=== PATIENT | female | born 1950 | race Caucasian/White ===

== ENCOUNTER 2020-05-21 15:40 | Outpatient (CLI) | payer MEDICARE ==
--- NOTE | 2020-05-21 16:44 | MRI ---
EXAM: LEFT KNEE MRI WITHOUT IV CONTRAST: 05/21/20 HISTORY: Knee pain. Multiplanar, multisequence MRI examination of the knee demonstrates tricompartment cartilage loss. No significant suprapatellar bursal fluid. Small to moderate sized gastrocnemius semimembranosus recess fluid. Minimal intrasubstance degenerative signal of the medial meniscus. Somewhat complex appearing probable flap tear of the anterior horn and anterior body of the lateral meniscus. Cruciate ligament s and collateral ligament complexes appear intact. Quadriceps and patellar tendons appear unremarkabl e. No evidence for acute abnormal marrow edema. IMPRESSION: 1. 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 2. Complex tear of the lateral meniscus with a flap component involving the anterior horn and an terior body region. Intrasubstance degenerative signal involving the medial meniscus. Small to modera te amount of fluid within the gastrocnemius semimembranosus recess. POS: RRE
== END 2020-05-21 15:41 | disposition home or self-care (01) ==
LOC: BICMRI 15:40
PROVIDERS: ATTEND Family Medicine Geriatric Medicine
DX: M25.562 Pain in left knee (principal); M23.307 Other meniscus derangements, unspecified meniscus, left knee; S83.272A Complex tear of lateral meniscus, current injury, left knee, initial encounter; M25.762 Osteophyte, left knee; M24.112 Other articular cartilage disorders, left shoulder; M94.262 Chondromalacia, left knee; M25.462 Effusion, left knee; R93.6 Abnormal findings on diagnostic imaging of limbs

== ENCOUNTER 2021-01-13 12:20 | Outpatient (CLI) | payer MEDICARE | END 2021-01-13 12:21 | disposition home or self-care (01) | LOC: ULT 12:20 | PROVIDERS: ATTEND Internal Medicine | DX: I65.22 Occlusion and stenosis of left carotid artery (principal); I10 Essential (primary) hypertension; I73.9 Peripheral vascular disease, unspecified; I25.10 Atherosclerotic heart disease of native coronary artery without angina pectoris; I83.90 Asymptomatic varicose veins of unspecified lower extremity; R00.1 Bradycardia, unspecified | CPT/HCPCS: 93306; 93880; 93922 ==

== ENCOUNTER 2021-01-14 07:54 | Outpatient (CLI) | payer MEDICARE ==
[2021-01-14] MEDS ORDERED: ADENOSINE 60 MG/20 ML VIAL ONE (10:21)
== END 2021-01-14 07:55 | disposition home or self-care (01) ==
LOC: NM 07:54
PROVIDERS: ATTEND Internal Medicine
DX: I65.22 Occlusion and stenosis of left carotid artery (principal); I25.10 Atherosclerotic heart disease of native coronary artery without angina pectoris; I73.9 Peripheral vascular disease, unspecified; I86.8 Varicose veins of other specified sites; I10 Essential (primary) hypertension
CPT/HCPCS: 78452; 93017; A9500; J0153